=== PATIENT | female | born 1980 | race Caucasian/White ===

== ENCOUNTER 2017-07-29 12:57 | Emergency (ER) | payer OTHER ==
[~2017-07-29] VITALS: Ht 160 cm; Wt 52.5 kg
[2017-07-29 13:13] VITALS: BP 131/68; PULSE 99; RESP 20; TEMP 97.7; O2SAT 97
[2017-07-29] MEDS ORDERED: PROT40TA PO (13:40)
[2017-07-29] MEDS ORDERED: LORazepam 2 MG TAB PO ONE (14:00)
[2017-07-29] MEDS ORDERED: LORA-474 PO ×2 (14:01→14:04)
--- NOTE | 2017-07-29 14:01 | PD ---
HPI Chief Complaint: Anxiety Time Seen by Provider: 13:35 Travel History International Travel<30 days: No Contact w/Intl Traveler<30days: No Traveled to known affect area: No History of Present Illness HPI This 37-year-old female is complaining of severe anxiety. She has a history of PTSD. She has had multiple traumatic incidents in her life through the years. She also has IBS. She had been on medical marijuana for about 5 years and actually was doing fairly well with that. Recently multiple members of her family got sick with vomiting and diarrhea. She was hospitalized and I believe she may have been diagnosed with cannabis hyperemesis syndrome. In any event her provider has decided to take her off cannabis. Patient is complaining of severe anxiety stress. sHe has not been able to sleep PFSH Past Medical History Anxiety: Yes GERD: Yes ?: Not Past Surgical History Hysterectomy: Yes Social History Alcohol Use: No Tobacco Use: Yes (vape) Substance Use: No Allergies-Medications (Allergen,Severity, Reaction): Coded Allergies: diphenhydramine (Verified Allergy, Severe, RAPID HR, 07/29/17) metoclopramide (Verified Allergy, Intermediate, TACHYCARDIA, 07/29/17) prochlorperazine (Verified Allergy, Intermediate, TACHYCARDIA, 07/29/17) Reported Meds & Prescriptions Reported Meds & Active Scripts Active Reported Protonix (Pantoprazole Sodium) 40 Mg Tab 40 Mg PO DAILY Review of Systems General / Constitutional: No: Fever, Chills Eyes: No: Diploplia HENT: No: Headaches, Lightheadedness Cardiovascular: No: Chest Pain or Discomfort, Palpitations Gastrointestinal: No: Nausea Genitourinary: No: Urgency, Frequency Musculoskeletal: No: Myalgias, Arthralgias Skin: No Rash Neurologic: No: Weakness Psychiatric: Positive: Anxiety, No: Suicidal Ideations Hematologic/Lymphatic: No: Easy Bruising Physical Exam Narrative GENERAL: Well-developed female somewhat agitated SKIN: Focused skin assessment warm/dry. HEAD: Atraumatic. Normocephalic. EYES: Pupils equal and round. No scleral icterus. No injection or drainage. ENT: No nasal bleeding or discharge. Mucous membranes pink and moist. NECK: Trachea midline. No JVD. CARDIOVASCULAR: Regular rate and rhythm. No murmur appreciated. RESPIRATORY: No accessory muscle use. Clear to auscultation. Breath sounds equal bilaterally. GASTROINTESTINAL: Abdomen soft, non-tender, nondistended. Hepatic and splenic margins not palpable. MUSCULOSKELETAL: No obvious deformities. No clubbing. No cyanosis. No edema. NEUROLOGICAL: Awake and alert. No obvious cranial nerve deficits. Motor grossly within normal limits. Normal speech. PSYCHIATRIC: Severe anxiety Data Data Last Documented VS Vital Signs Date Time Temp Pulse Resp B/P (MAP) Pulse Ox O2 Delivery O2 Flow Rate FiO2 07/29/17 13:13 97.7 99 20 131/68 (89) 97 Orders Orders Lorazepam (Ativan) (07/29/17 14:00) [facility] Medical Decision Making Medical Screen Exam Complete: Yes Emergency Medical Condition: Yes Medical Record Reviewed: Yes Differential Diagnosis Differential includes anxiety, PTSD Narrative Course I am going to provide some Ativan as she does appear to be having severe anxiety. The importance that she follow up with psychiatry was stressed Diagnosis Primary Impression: Anxiety Scripts Lorazepam (Ativan) 1 Mg Tab 1 MG PO Q8H Y for ANXIETY AND/OR AGITATION, #10 TAB 0 Refills Prov: Zak Roque MD 07/29/17 Disposition: 01 DISCHARGE HOME Condition: Stable Zak Roque MD Jul 29, 2017 14:01
== END 2017-07-29 14:14 | disposition home or self-care (01) ==
LOC: PHED 12:57
DX: F41.9 Anxiety disorder, unspecified (principal); K21.9 Gastro-esophageal reflux disease without esophagitis; F43.10 Post-traumatic stress disorder, unspecified; K58.9 Irritable bowel syndrome, unspecified; F17.290 Nicotine dependence, other tobacco product, uncomplicated; Z88.8 Allergy status to other drugs, medicaments and biological substances; Z79.899 Other long term (current) drug therapy
CPT/HCPCS: 99283